=== PATIENT | female | born 1930 | race Caucasian/White ===

== ENCOUNTER 2017-04-30 17:52 | Emergency (ER) | payer OTHER ==
[~2017-04-30 17:52] MED LIST: ALBUTEROL0.09 MG/A4 IH; AMLODIPINE BESY1 C11 PO; AMLODIPINE BESY1 C12 PO; ATORVASTATIN CA40 M1 PO; CLINDAMYCIN HC300 MG PO; GUAIFENESIN AN118 ML PO; KLOR-CON M2020 MEQ PO; LAC PO; LEVAQUIN750 MG PO; LISINOPRIL20 MG PO; MEDDP PO; METOPROLOL SUCC25 M1 PO; NEU300 PO; POTASSIUM CHLO10 MEQ PO; PRILOSEC20 MG PO
[2017-04-30 17:58] VITALS: BP 168/84
== END 2017-04-30 20:59 | disposition home or self-care (01) ==
LOC: ED 17:52
DX: L30.4 Erythema intertrigo (principal); I10 Essential (primary) hypertension; Z79.899 Other long term (current) drug therapy; Z79.2 Long term (current) use of antibiotics